=== PATIENT | female | born 1940 | race Caucasian/White ===

== ENCOUNTER → 2016-10-07 | Outpatient (CLI) | payer OTHER ==
[~2016-10-07] MED LIST: ALBUAER2 INH; AVP150 PO; CHOL100010 PO; CHOL20007 PO; CLOP1TAB15 PO; GLC500 PO; HYDC25 PO; HYDR500C3 PO; IRBE1TAB46 PO; MULT-506 PO; SIMV20TA2 PO; SNG10 PO; TIZA2CAP PO; TRAZ1TAB52 PO; TRAZ50TA35 PO
== END | disposition home or self-care (01) ==
LOC: C.PATHSPEC 17:46
PROVIDERS: ATTEND Orthopaedic Surgery Sports Medicine
DX: M67.471 Ganglion, right ankle and foot (principal)

== ENCOUNTER → 2016-12-04 | Day surgery (SDC) | payer OTHER ==
[2016-11-20 14:27] VITALS: Ht 170.2 cm; Wt 113.6 kg
[~2016-12-04] VITALS: Ht 170.2 cm; Wt 113.6 kg
[~2016-12-04] MED LIST changes: -ALBUAER2 INH; -AVP150 PO; -CHOL100010 PO; -GLC500 PO; -HYDC25 PO; +LIDOCAINE HCL 2% 2 ML VIAL (20MG/ML) ONE; -MULT-506 PO; +PROPOFOL IV EMULSION 10 MG/ML 20 ML VIAL IV ONE; -SNG10 PO; +SODIUM CHLORIDE 0.9% 500ML 500 ML IV ONE; -TRAZ50TA35 PO
[2016-12-04 08:28] VITALS: TEMP 36.1
--- NOTE | 2016-12-04 08:40 | Endo History and Physical ---
History & Physical Date of Service: Dec 04, 2016. Chief Complaint: Screening Referring Physician: Peggy History of Present Illness 76 yo CF who presents for screening colonoscopy. Past Surgical History Hx Cardiac Surgery: No Hx Internal Defibrillator: No Hx Pacemaker: No Hx Abdominal Surgery: Yes (OSIEL) Hx of Implantable Prosthesis: No Hx Post-Op Nausea and Vomiting: No Hx Cancer Surgery: No Hx Thoracic Surgery: No Hx Orthopedic: Yes (RT/LEFT CTR, RT/LEFT TKA, RT FOOT SURGERY/CYST REMOVAL) Hx Urinary Tract Surgery: No Family History None Social History Smoking Status: Never Smoker Hx Substance Use: No Hx Alcohol Use: Yes (OCCASIONALLY) Allergies Coded Allergies: Aspirin (Unverified Allergy, Mild, CAN'T BREATHE, 12/04/16) Current Medications Reported Home Medications Medications Dose Route/Sig Max Daily Dose Days Date Category Zanaflex (Tizanidine HCl) 2 Mg Cap 2 Mg PO HS PRN 11/20/16 Reported Desyrel (Trazodone Hcl) 150 Mg Tab 150 Mg PO HS 11/20/16 Reported Zocor (Simvastatin) 20 Mg Tab 20 Mg PO QPM 11/20/16 Reported Irbesartan 75 Mg Tab 1 Tab PO QAM 11/20/16 Reported Plavix (Clopidogrel Bisulfate) 75 Mg Tab 75 Mg PO QAM 11/20/16 Reported Hydrea Cap (Hydroxyurea) 500 Mg Cap 500 Mg PO BID 11/20/16 Reported Vitamin D3 (Cholecalciferol) 2,000 Unit Tab 1 Tab PO QAM 90 11/20/16 Reported Vital Signs Weight (Kilograms): 113.64 Height (Feet): 5 Height (Inches): 7 Date Time Temp Pulse Resp B/P (MAP) Pulse Ox O2 Delivery O2 Flow Rate FiO2 12/04/16 08:28 36.1 83 18 171/78 (109) 97 Room Air Physical Exam General Appearance: WD/WN, no apparent distress Respiratory/Chest: Auscultation: breath sounds normal Cardiovascular: Heart Auscultation: RRR Abdomen: Bowel Sounds: normal Inspection & Palpation: soft, non-distended, no tenderness, guarding & rebound Assessment and Plan Assessment: 76 yo CF who presents for screening colonoscopy. Plan: Proceed with colonoscopy.
--- NOTE | 2016-12-04 09:06 | Discharge Instructions ---
Endoscopy Patient Instructions Date / Procedure(s) Performed Dec 04, 2016. Colonoscopy Allergy Information Coded Allergies: Aspirin (Unverified Allergy, Mild, CAN'T BREATHE, 12/04/16) Discharge Date / Findings Dec 04, 2016. Colon polyp Internal hemorrhoids Medication Instructions Stopped Medication(s): Plavix stopped on 11/28/16 OK to resume all medications today as prescribed Reported Home Medications Medications Dose Route/Sig Max Daily Dose Days Date Category Zanaflex (Tizanidine HCl) 2 Mg Cap 2 Mg PO HS PRN 11/20/16 Reported Desyrel (Trazodone Hcl) 150 Mg Tab 150 Mg PO HS 11/20/16 Reported Zocor (Simvastatin) 20 Mg Tab 20 Mg PO QPM 11/20/16 Reported Irbesartan 75 Mg Tab 1 Tab PO QAM 11/20/16 Reported Plavix (Clopidogrel Bisulfate) 75 Mg Tab 75 Mg PO QAM 11/20/16 Reported Hydrea Cap (Hydroxyurea) 500 Mg Cap 500 Mg PO BID 11/20/16 Reported Vitamin D3 (Cholecalciferol) 2,000 Unit Tab 1 Tab PO QAM 90 11/20/16 Reported Provider Instructions Activity Restrictions - No exercising or heavy lifting for 24 hours. - Do not drink alcohol the day of the procedure. - Do not drive a car or operate machinery until the day after the procedure. - Do not make any important decisions or sign important papers in 24 hours after the procedure. Following Day: - Return to full activity which may include returning to work/school. Diet Start your diet with liquids and light foods (jello, soup, juice, toast). Then eat your usual diet if not nauseated. Treatment For Common After Affects For mild abdominal pain, bloating, or excessive gas: - Rest - Eat lightly - Lie on right side Follow-Up Information Follow-up with [facility] as scheduled Anesthesia Information What You Should Know You have had a procedure that required some medicine to reduce anxiety and discomfort. This treatment is called moderate sedation. After receiving the treatment, you may be sleepy, but you will be able to breathe on your own. The effects of the treatment may last for several hours. Follow these instructions along with Activity/Diet recommendations noted above: * Do NOT do anything where dizziness or clumsiness would be dangerous. * Rest quietly at home today, then you can be up and about tomorrow. * Have a responsible person stay with you the rest of today. * You may have had an I.V. today. If so, you may take the dressing off later today. Recommendations Call your doctor if: * Trouble breathing * Continuous vomiting for more than 24 hours * Temperature above 101 degrees * Severe abdominal pain or bloating * Pain not relieved by pain medicine ordered * There is increased drainage or redness from any incision * A large amount of rectal bleeding greater than 2-3 tablespoons. (If you had a polyp/s removed or have hemorrhoids, a small amount of blood - from the rectum is to be expected.) * You have any unanswered questions or concerns. IN THE EVENT OF A SERIOUS EMERGENCY, GO TO THE NEAREST EMERGENCY ROOM Your discharge instructions were prepared by provider Feliz Palm. Patient Instructions Signature Page Marisabel Laureano Patient (or Guardian) Signature/Date: I have read and understand the instructions given to me by my caregivers. Caregiver/RN/Doctor Signature/Date: The above-named patient and/or guardian has received patient instructions on this date. + Original Patient Signature Page (only) stays with chart. Please make copy for patient.
--- NOTE | 2016-12-04 09:08 | GI REPORT ---
Procedure Date: 12/04/2016 8:26 AM Procedure: Colonoscopy Indications: Screening for colorectal malignant neoplasm Medicines: Monitored Anesthesia Care Complications: No immediate complications. Estimated Blood Loss: Estimated blood loss: none. Procedure: Pre-Anesthesia Assessment: - Prior to the procedure, a History and Physical was performed, and patient medications and allergies were reviewed. The patient's tolerance of previous anesthesia was also reviewed. The risks and benefits of the procedure and the sedation options and risks were discussed with the patient. All questions were answered, and informed consent was obtained. Prior Anticoagulants: The patient has taken Plavix (clopidogrel), last dose was 6 days prior to procedure. ASA Grade Assessment: III - A patient with severe systemic disease. After reviewing the risks and benefits, the patient was deemed in satisfactory condition to undergo the procedure. After I obtained informed consent, the scope was passed under direct vision. Throughout the procedure, the patient's blood pressure, pulse, and oxygen saturations were monitored continuously. The scope was introduced through the anus and advanced to the terminal ileum. The colonoscopy was performed without difficulty. The patient tolerated the procedure well. The quality of the bowel preparation was good. The terminal ileum, ileocecal valve, appendiceal orifice, and rectum were photographed. Findings: A 5 mm polyp was found in the descending colon. The polyp was sessile. The polyp was removed with a hot snare. Resection and retrieval were complete. Non-bleeding internal hemorrhoids were found during retroflexion. The hemorrhoids were small. Impression: - One 5 mm polyp in the descending colon, removed with a hot snare. Resected and retrieved. - Non-bleeding internal hemorrhoids. Recommendation: - Resume previous diet. - Continue present medications. - Repeat colonoscopy for surveillance based on pathology results. - Return to primary care physician as previously scheduled. Feliz Palm DO 12/04/2016 9:08:26 AM This report has been signed electronically. Note Initiated On: 12/04/2016 8:26 AM I attest to the content of the Intraoperative Record and orders documented therein, exceptions below
--- NOTE | 2016-12-04 09:33 | Anesthesiology Progress Note ---
Anesthesia Post Op Note Date & Time Dec 04, 2016 at 09:32 Vital Signs Pain Intensity: 0 Vital Signs Past 12 Hours Date Time Temp Pulse Resp B/P (MAP) Pulse Ox O2 Delivery O2 Flow Rate FiO2 12/04/16 09:26 70 18 143/79 (100) 97 Room Air 12/04/16 09:11 78 18 130/74 (92) 98 Room Air 12/04/16 08:28 36.1 83 18 171/78 (109) 97 Room Air Notes Mental Status: alert / awake / arousable, participated in evaluation Pt Amnestic to Procedure: Yes Nausea / Vomiting: adequately controlled Pain: adequately controlled Airway Patency, RR, SpO2: stable & adequate BP & HR: stable & adequate Hydration State: stable & adequate Anesthetic Complications: no major complications apparent
[2016-12-04 09:41] VITALS: BP 144/90; PULSE 70; O2SAT 98
== END | disposition home or self-care (01) ==
LOC: C.GI 07:58
PROVIDERS: ATTEND Internal Medicine
DX: Z12.11 Encounter for screening for malignant neoplasm of colon (principal); D12.4 Benign neoplasm of descending colon; Z79.899 Other long term (current) drug therapy; Z79.02 Long term (current) use of antithrombotics/antiplatelets; K64.8 Other hemorrhoids

== ENCOUNTER 2017-03-28 13:56 | Emergency (ER) | payer OTHER ==
[~2017-03-28] VITALS: Ht 170.2 cm; Wt 126.0 kg
[~2017-03-28 13:56] MED LIST changes: -LIDOCAINE HCL 2% 2 ML VIAL (20MG/ML) ONE; -PROPOFOL IV EMULSION 10 MG/ML 20 ML VIAL IV ONE; -SODIUM CHLORIDE 0.9% 500ML 500 ML IV ONE
[2017-03-28 14:07] VITALS: TEMP 36.7; Ht 170.2 cm; Wt 126.0 kg
--- NOTE | 2017-03-28 14:25 | EMERGENCY ROOM VISIT NOTE ---
History Report prepared by Matthew: Franca Deleon Under the Supervision of: Dr. Lore Urias D.O. 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 She was recently seen by her hospital medical biller, who performed blood tests and informed her to come to the ED. She notes that she regularly sees her hospital medical biller every six months. She notes that she has had an episode of high potassium about a year ago, though it resolved itself. She denies any recent changes to her medications or diet. She notes that she was diagnosed with "stage 4 kidney disease." She notes a current headache and is anxious. She denies any leg swelling, urinary symptoms, fevers, chills, chest pain, palpitations, shortness of breath, or tingling. 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 She denies any leg swelling, palpitations, or tingling. Review of Systems See HPI for pertinent positives & negatives. A total of 10 systems reviewed and were otherwise negative. Past Medical & Surgical Medical Problems: (1) Stage 4 chronic kidney disease Family History No pertinent family history reported. Social History Smoking Status: Never Smoker Smokeless Tobacco Use: No Alcohol Use: none Drug Use: none Marital Status: Housing Status: lives with significant other Occupation Status: retired Current/Historical Medications Scheduled Cholecalciferol (Vitamin D3), 1 TAB PO QAM Clopidogrel (Plavix), 75 MG PO QAM Hydroxyurea (Hydrea Cap), 500 MG PO BID Irbesartan (Irbesartan), 1 TAB PO QAM Simvastatin (Zocor), 20 MG PO QPM Trazodone Hcl (Desyrel), 150 MG PO HS Scheduled PRN Tizanidine (Zanaflex), 2 MG PO HS PRN for LEG CRAMPS Allergies Coded Allergies: Aspirin (Unverified Allergy, Mild, CAN'T BREATHE, 03/28/17) Physical Exam Vital Signs Date Time Temp Pulse Resp B/P (MAP) Pulse Ox O2 Delivery O2 Flow Rate FiO2 03/28/17 15:30 76 20 137/85 96 Room Air 03/28/17 14:07 36.7 97 18 152/97 96 Room Air Physical Exam GENERAL: alert, well appearing, well nourished, no distress, non-toxic EYE EXAM: normal conjunctiva, PERRL and EOM's grossly intact OROPHARYNX: no exudate, no erythema, lips, buccal mucosa, and tongue normal and mucous membranes are moist NECK: supple, no nuchal rigidity, no adenopathy, non-tender LUNGS: Clear to auscultation. Normal chest wall mechanics HEART: no murmurs, S1 normal and S2 normal ABDOMEN: abdomen soft, non-tender, normo-active bowel sounds, no masses, no rebound or guarding. BACK: Back is symmetrical on inspection and there is no deformity, no midline tenderness, no CVA tenderness. SKIN: no rashes and no bruising UPPER EXTREMITIES: upper extremities are grossly normal. LOWER EXTREMITIES: No pitting edema. NEURO EXAM: Normal sensorium, cranial nerves II-XII grossly intact, normal speech, no gross weakness of arms, no gross weakness of legs. Medical Decision & Procedures Laboratory Results 03/28/17 14:28 Red Blood Count 4.45, Mean Corpuscular Volume 92.6, Mean Corpuscular Hemoglobin 29.0, Mean Corpuscular Hemoglobin Concent 31.3, Mean Platelet Volume 9.5, Neutrophils (%) (Auto) 71.6, Lymphocytes (%) (Auto) 14.8, Monocytes (%) (Auto) 9.7, Eosinophils (%) (Auto) 1.7, Basophils (%) (Auto) 1.4, Neutrophils # (Auto) 8.49, Lymphocytes # (Auto) 1.75, Monocytes # (Auto) 1.15, Eosinophils # (Auto) 0.20, Basophils # (Auto) 0.17 03/28/17 14:28 Test 03/28/17 14:28 White Blood Count 11.85 K/uL (4.8-10.8) Red Blood Count 4.45 M/uL (4.2-5.4) Hemoglobin 12.9 g/dL (12.0-16.0) Hematocrit 41.2 % (37-47) Mean Corpuscular Volume 92.6 fL (80-100) Mean Corpuscular Hemoglobin 29.0 pg (25-34) Mean Corpuscular Hemoglobin Concent 31.3 g/dl (32-36) Platelet Count 551 K/uL (130-400) Mean Platelet Volume 9.5 fL (7.4-10.4) Neutrophils (%) (Auto) 71.6 % Lymphocytes (%) (Auto) 14.8 % Monocytes (%) (Auto) 9.7 % Eosinophils (%) (Auto) 1.7 % Basophils (%) (Auto) 1.4 % Neutrophils # (Auto) 8.49 K/uL (1.4-6.5) Lymphocytes # (Auto) 1.75 K/uL (1.2-3.4) Monocytes # (Auto) 1.15 K/uL (0.11-0.59) Eosinophils # (Auto) 0.20 K/uL (0-0.5) Basophils # (Auto) 0.17 K/uL (0-0.2) RDW Standard Deviation 63.0 fL (36.4-46.3) RDW Coefficient of Variation 18.6 % (11.5-14.5) Immature Granulocyte % (Auto) 0.8 % Immature Granulocyte # (Auto) 0.09 K/uL (0.00-0.02) Anion Gap 7.0 mmol/L (3-11) Est Creatinine Clear Calc Drug Dose 35.8 ml/min Estimated GFR () 29.6 Estimated GFR (Non- 25.5 BUN/Creatinine Ratio 19.1 (10-20) Calcium Level 9.3 mg/dl (8.5-10.1) Phosphorus Level 4.3 mg/dl (2.5-4.9) Magnesium Level 2.3 mg/dl (1.8-2.4) Total Bilirubin 0.3 mg/dl (0.2-1) Aspartate Amino Transf (AST/SGOT) 16 U/L (15-37) Alanine Aminotransferase (ALT/SGPT) 21 U/L (12-78) Alkaline Phosphatase 63 U/L (45-117) Total Protein 7.3 gm/dl (6.4-8.2) Albumin 3.4 gm/dl (3.4-5.0) Globulin 3.9 gm/dl (2.5-4.0) Albumin/Globulin Ratio 0.9 (0.9-2) Laboratory results per my review. ECG Indication: other (high potassium levels) Rate (beats per minute): 82 Rhythm: normal sinus Findings: no acute ischemic change, left axis deviation, no ectopy, other ( Normal intervals. No peaked T waves.) ED Course 1414: The patient was evaluated in room B5. A complete history and physical exam was performed. 1520: I reassessed the patient at this time. She is feeling better and resting comfortably. I discussed the results and treatment plan with the patient. I answered all pertaining questions that she had. She expressed understanding and verbalized agreement. The patient will be discharged home. 1538: I spoke with Roya Campos, academic affairs specialist. We discussed the patients case. He will follow up with the patient. Medical Decision Patient well-appearing here and sent in for abnormal outpatient labs. Patient asymptomatic and no complaints. Potassium drawn yesterday was 6.0. Potassium today 5.1. Likely lab error/hemolysis of specimen. No EKG changes patient remained asymptomatic, no ectopy noted on telemetry. Discussed with Dr. Santamaria, who was agreeable with plan for discharge and follow-up as an outpatient. Medication Reconcilliation Current Medication List: was personally reviewed by me Consults Time Called: 1531 Consulting Physician: Roya Campos, academic affairs specialist Returned Call: [phone] I spoke with Roya Campos, academic affairs specialist. We discussed the patients case. No medication changes at this time. Patient should avoid high potassium foods. He will follow up with the patient. Impression Primary Impression: Hyperkalemia Scribe Attestation The scribe's documentation has been prepared under my direction and personally reviewed by me in its entirety. I confirm that the note above accurately reflects all work, treatment, procedures, and medical decision making performed by me. Departure Information Dispostion Home / Self-Care Referrals Marie Woods D.O. (PCP) Forms HOME CARE DOCUMENTATION FORM, IMPORTANT VISIT INFORMATION, WORK / SCHOOL INSTRUCTIONS Patient Instructions My [facility] Additional Instructions Please continue regular medications as prescribed. Please continue your follow- up with your kidney specialist as scheduled. If you have any new or concerning symptoms, please return the emergency room.
[2017-03-28 14:41] LABS: BASO % 1.4 %; BASO ABS # 0.17 K/uL (0-0.2); COMPLETE YES; EOS % 1.7 %; HEMATOCRIT 41.2 % (37-47); IG% 0.8 %; LYMPH % 14.8 %; LYMPH ABS # 1.75 K/uL (1.2-3.4); MEAN CELL VOLUME 92.6 fL (80-100); MEAN CORPUSCULAR HGB CONC 31.3 g/dl (32-36); MEAN PLATELET VOLUME 9.5 fL (7.4-10.4); MONO % 9.7 %; NEUT % 71.6 %; PLATELET COUNT 551 K/uL (130-400); RED BLOOD COUNT 4.45 M/uL (4.2-5.4); WHITE BLOOD COUNT 11.85 K/uL (4.8-10.8)
[2017-03-28 15:01] LABS: BUN/CREATININE RATIO 19.1 (10-20); CALCIUM 9.3 mg/dl (8.5-10.1); CREATININE 1.9 mg/dl (0.60-1.20); MAGNESIUM 2.3 mg/dl (1.8-2.4); POTASSIUM 5.1 mmol/L (3.5-5.1)
[2017-03-28 15:04] LABS: ALB/GLOB RATIO 0.9 (0.9-2); PHOSPHORUS 4.3 mg/dl (2.5-4.9)
[2017-03-28 15:30] VITALS: BP 137/85; PULSE 76; O2SAT 96
== END 2017-03-28 15:49 | disposition home or self-care (01) ==
LOC: C.EDB 13:57
DX: E87.5 Hyperkalemia (principal); N18.4 Chronic kidney disease, stage 4 (severe); Z79.02 Long term (current) use of antithrombotics/antiplatelets